=== PATIENT | female | born 1975 | race Caucasian/White ===

== ENCOUNTER 2017-08-24 00:18 | Emergency (ER) | payer MEDICAID, SELFPAY ==
[2017-08-24 00:19] VITALS: BP 138/75; PULSE 75; RESP 16; TEMP 36.9; O2SAT 95; BMI 28.0
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
--- NOTE | 2017-08-24 01:21 | ED.DEP ---
ED Disposition - Plan for ED Patient: Chief Complaint: Upper Extremity Injury Instructions: ED Contusion Hand Referrals: Winifred Christianson DO [Primary Care Provider] - 5-7 Days
== END 2017-08-24 01:31 | disposition home or self-care (01) ==
LOC: ED 00:53
PROVIDERS: Emergency Provider Emergency Medicine
DX: S60.221A Contusion of right hand, initial encounter (principal); Y00.XXXA Assault by blunt object, initial encounter; Y93.89 Activity, other specified; Y92.9 Unspecified place or not applicable; Y99.9 Unspecified external cause status; J45.909 Unspecified asthma, uncomplicated
CPT/HCPCS: 73130; 99284